=== PATIENT | female | born 1965 | race Caucasian/White ===

== ENCOUNTER 2019-08-08 17:28 | Emergency (ER) | payer MEDICAID ==
[~2019-08-08] VITALS: Ht 170.2 cm; Wt 54.4 kg
--- NOTE | 2019-08-08 17:30 | NUR ---
PT JEANETH FRM THE [facility]RE[facility] TO ER BED 14 CLAIMING TO BE "SUICIDA." W/ PLAN TO RUN INTO TRAFFIC. PER COMMERCIAL DOOR INSTALLER REPORT, PT WAS JUST RELEASED AT [facility] AND WAS SENT TO A [facility]. WHEN SHE FOUND [facility] WERE CLOSED CALLED 911 STATING SHE WAS SUICIDAL. PT DENIES ANY PAIN OR DISCOMFORT. GOWNED, BELONGINGS TO SAFE LOCKER. AWAITING MD ADEN.
--- NOTE | 2019-08-08 17:32 | NUR ---
DR VIEIRA AT BEDSIDE FOR EVAL.
--- NOTE | 2019-08-08 17:51 | NUR ---
HADOOP ADMINISTRATOR AT BEDSIDE FOR BLOOD DRAW.
[2019-08-08 17:54] LABS: BASOPHILS # (AUTO) 0.1 /CMM (0.0-0.2); HEMATOCRIT 43 % (33-45); HEMOGLOBIN 14.1 g/dL (11.5-14.8); LYMPHOCYTES # (AUTO) 1.7 /CMM (0.8-4.8); LYMPHOCYTES % (AUTO) 19.8 % (20.0-44.0); MEAN CORPUSCULAR HGB CONC 33 g/dl (31.0-36.0); MEAN CORPUSCULAR VOLUME 92 fL (82-100); MONOCYTES # (AUTO) 0.6 /CMM (0.1-1.30); MONOCYTES % (AUTO) 7.1 % (2.0-12.0); NEUTROPHILS # (AUTO) 5.9 /CMM (1.8-8.9); NEUTROPHILS % (AUTO) 71.1 % (43.0-81.0); PLATELET COUNT (AUTO) 208 /CMM (150-450); WHITE BLOOD COUNT (AUTO) 8.3 K/uL (4.3-11.0)
[2019-08-08 18:07] LABS: CALCIUM, SERUM 9.3 mg/dL (8.5-10.1); CARBON DIOXIDE 23 mmol/L (21-32); CHLORIDE 98 mmol/L (98-107); CREATININE 0.7 mg/dL (0.6-1.3); GLUCOSE 81 mg/dL (74-106); POTASSIUM 4.5 mmol/L (3.5-5.1); SODIUM SERUM 134 mmol/L (136-145); UREA NITROGEN, BLOOD 22 mg/dL (7-18)
[2019-08-08 18:19] LABS: ALANINE AMINOTRANSFERASE 33 U/L (12-78); ALCOHOL, BLOOD < 3 mg/dL (0-0); ALKALINE PHOSPHATASE 83 U/L (46-116); ASPARTATE AMINOTRANSFERASE 32 U/L (15-37); BILIRUBIN,DIRECT 0.1 mg/dL (0.0-0.2); BILIRUBIN,TOTAL 0.6 mg/dL (0.2-1.0); SALICYLATE 4.2 mg/dL (2.8-20.0); TOTAL PROTEIN, SERUM 8.3 g/dL (6.4-8.2)
[2019-08-08 18:20] LABS: ACETAMINOPHEN < 2 ug/ml (10-30)
[2019-08-08 18:41] LABS: APPEARANCE,URINE Clear (CLEAR); BILIRUBIN,URINE SMALL (NEGATIVE); BLOOD, URINE Negative Ery/uL (NEGATIVE); COLOR,URINE Yellow (YELLOW); KETONES,URINE 40 (NEGATIVE); LEUKOCYTE ESTERASE ,URINE Trace (NEGATIVE); NITRITE, URINE Negative (NEGATIVE); PH,URINE 5.5 (5.0-8.0); PROTEIN,URINE Trace mg/dl (NEGATIVE); UGLUCOSE Negative (NEGATIVE); UROBILINOGEN,URINE 0.2 EU/dL (0.2)
[2019-08-08 18:58] LABS: BACTERIA,URINE Few /HPF (None Seen); RBC,URINE NONE SEEN /HPF (0-2); SQUAMOUS EPITHELIAL CELL,UR Few /HPF (None Seen)
--- NOTE | 2019-08-08 19:54 | NUR ---
[facility] CONSULTANT PETE ETA 1 HOUR
--- NOTE | 2019-08-08 20:30 | NUR ---
PINKY PAPER [employer]E MACHINE TENDER AT BEDSIDE TO EVAL PT
--- NOTE | 2019-08-08 22:31 | NUR ---
PT ASLEEP, NO ACUTE DISTRESS NOTED, RESP EVEN AND UNLABORED. VITAL SIGNS STABLE. SITTER STILL AT BEDSIDE, WILL CONTINUE TO MONITOR
--- NOTE | 2019-08-08 22:32 | NUR ---
PER THEO PT GOING TO [facility], ACCEPTING MD [facility]. ADMIT TO ROOM 318-A, RN FOR REPORT [phone].
--- NOTE | 2019-08-08 22:50 | NUR ---
called for report, nurse not available-- callback in 15mins. look for vega
--- NOTE | 2019-08-08 23:04 | NUR ---
[facility] CALLED REGARDING TRANSPORT ETA 60-90MIN ([facility])
--- NOTE | 2019-08-08 23:37 | NUR ---
REPORT GIVEN TO ROLANDO EWIR AT [facility]
[2019-08-09 01:35] VITALS: BP 117/74
--- NOTE | 2019-08-09 01:35 | NUR ---
[facility] AT BEDSIDE FOR PT TRANSPORT TO [facility]. REPORT GIVEN TO AMBULANCE STAFF. PT IS IN STABLE CONDITION. NAD NOTED
--- NOTE | 2019-08-09 01:40 | NUR ---
PT LEFT ON [facility] W/ 2 AMBULANCE STAFF
== END 2019-08-09 01:49 ==
LOC: EDBD 17:31 → ER 17:31
DX: R45.851 Suicidal ideations (principal); F41.0 Panic disorder [episodic paroxysmal anxiety]; F32.9 Major depressive disorder, single episode, unspecified; F29 Unspecified psychosis not due to a substance or known physiological condition; Z60.2 Problems related to living alone; Z59.0 Homelessness; Z91.018 Allergy to other foods
CPT/HCPCS: 36415; 80048; 80076; 80305; 80307; 80329; 81001; 85025; 99285; G0480; J7030; 81000-TC

== ENCOUNTER 2020-07-17 20:07 | Emergency (ER) | payer MEDICAID, OTHER ==
[~2020-07-17] VITALS: Ht 171.4 cm; Wt 74.4 kg
[2020-07-17 20:09] VITALS: BP 133/80
--- NOTE | 2020-07-17 20:10 | NUR ---
NO LACERATION, NO ABRASIONS NOTED ON BUE AND BLE. PT DENIES SI/HI, DENIES DRUG USE.
[2020-07-17] MEDS ORDERED: IBUPROFEN 600 MG TABLET ONE (20:33)
[2020-07-17] MEDS: IBUPROFEN 600 MG TABLET PO ONE (20:35)
== END 2020-07-17 20:37 ==
LOC: ER 20:09
DX: Z02.89 Encounter for other administrative examinations (principal); F32.9 Major depressive disorder, single episode, unspecified; F41.0 Panic disorder [episodic paroxysmal anxiety]; F17.200 Nicotine dependence, unspecified, uncomplicated; Y90.9 Presence of alcohol in blood, level not specified; Z91.018 Allergy to other foods; Z60.2 Problems related to living alone